=== PATIENT | male | born 1960 | race Caucasian/White ===

== ENCOUNTER 2020-10-07 18:57 | Emergency (ER) | payer OTHER ==
[~2020-10-07] VITALS: Ht 172.7 cm; Wt 83.5 kg
[~2020-10-07 18:57] MED LIST: MORP30TA PO; OXYC30TA3 PO
[2020-10-07 19:10] VITALS: BP 165/115
[2020-10-07] MEDS ORDERED: oxyCODONE IR 5 MG TABLET PO PRN (19:30)
[2020-10-07] MEDS ORDERED: LOPERAMIDE 2 MG CAPSULE PO ONE (19:30)
[2020-10-07] MEDS ORDERED: ACETAMINOPHEN 500 MG TABLET PO ONE (19:30)
[2020-10-07] MEDS ORDERED: IBUPROFEN 800 MG TABLET. PO ONE ×2 (19:33→19:45)
--- NOTE | 2020-10-07 19:34 | PHYS DOC ---
Past History Past Medical History: No Pertinent History Past Surgical History: No Surgical History Alcohol Use: None Drug Use: None Adult General Chief Complaint Chief Complaint: LOWER EXT PAIN HPI HPI Patient is a 60-year-old male, with chronic hip and knee pain with hardware in his knee and hip who presents for oxycodone. States he has been on it for almost 20 years and is going through withdrawals because he just came to town and is out of his medicine. States he lives out [place] of [facility] and is here in [place] for a few nights. Denies any headache, chest pain, shortness of breath, abdominal pain, nausea, vomiting, diarrhea. Other alcohol or drug use. States he does have a primary care physician at home. Review of Systems Review of Systems Review of systems otherwise unremarkable except noted in HPI Current Medications Current Medications Current Medications Medications (Trade) Dose Ordered Sig/Kaushik Start Time Stop Time Status Last Admin Dose Admin Acetaminophen (Tylenol) 1,000 mg 1X ONCE 10/07/20 19:30 10/07/20 19:31 UNV Fentanyl Citrate (Fentanyl 2ml Vial) 75 mcg 1X ONCE 10/07/20 19:30 10/07/20 19:31 UNV Ibuprofen (Motrin) 800 mg 1X ONCE 10/07/20 19:30 10/07/20 19:31 UNV Loperamide HCl (Imodium) 4 mg 1X ONCE 10/07/20 19:30 10/07/20 19:31 UNV Oxycodone HCl (Roxicodone) 10 mg 1X PRN 10/07/20 19:30 UNV Allergies Allergies Allergies Coded Allergies Type Severity Reaction Last Updated Verified No Known Drug Allergies 10/16/13 No Physical Exam Physical Exam Constitutional: Well developed, well nourished, no acute distress, non-toxic appearance. [] HENT: Normocephalic, atraumatic, Eyes: conjunctiva normal, no discharge. [] Cardiovascular:Heart rate regular rhythm, no murmur [] Lungs & Thorax: Bilateral breath sounds clear to auscultation [] Abdomen: soft, no tenderness, no masses, no pulsatile masses. [] Skin: Warm, dry, no erythema, no rash. [] Neurologic: Alert and oriented X 3, no focal deficits noted. [] Psychologic: Affect normal, judgement normal, mood normal. [] EKG EKG [] Radiology/Procedures Radiology/Procedures [] Heart Score C/O Chest Pain: No Risk Factors: Risk Factors: DM, Current or recent (<one month) smoker, HTN, HLP, family history of CAD, obesity. Risk Scores: Risk Factors: DM, Current or recent (<one month) smoker, HTN, HLP, family history of CAD, obesity. Course & Med Decision Making Course & Med Decision Making Patient is a 60-year-old male who presents for oxycodone, as he is out of town and is out of his chronic medication Vital signs notable for hypertension. Physical exam noted above. Given medicine for pain and opioid withdrawal in the ED. Discussed findings with patient and advised we do not do chronic pain management in the emergency department but gave him some while he is here for symptom relief. Advised to use Tylenol, ibuprofen, Benadryl and loperamide scheduled over the next couple of days to help with symptom management. Advised to call his primary care physician first thing Saturday morning. Gave return precautions to the ED. Patient grateful, verbalized understanding and agreed with plan of discharge. [] Dragon Disclaimer Dragon Disclaimer This electronic medical record was generated, in whole or in part, using a voice recognition dictation system. Departure Departure: Impression: Primary Impression: Opioid withdrawal Additional Impression: Pain management Disposition: 01 HOME / SELF CARE / HOMELESS Condition: IMPROVED Referrals: NON,STAFF (PCP) BG ROSAS MD Patient Instructions: Narcotic Withdrawal Additional Instructions: Thank you for coming into the emergency department tonight and allowing us to take care of you. Please read the attached information very carefully to go back over things we discussed. You were given a dose of opiate pain medicine in the emergency department and 2 tablets to take home. Please save these tablets for tomorrow. Please also take ibuprofen, small amount of Tylenol, Benadryl and Imodium to help with symptoms at home. Please call your primary care physician as soon as you can to update on ED visit and set up a follow-up visit for pain management. Please come back to the ED with new or concerning symptoms as discussed. Problem Qualifiers BALDOMERO MCCARTY MD Oct 07, 2020 19:34
== END 2020-10-07 19:45 | disposition home or self-care (01) ==
LOC: ER 18:57
DX: F11.23 Opioid dependence with withdrawal (principal); I10 Essential (primary) hypertension; G89.29 Other chronic pain; M25.569 Pain in unspecified knee; M25.559 Pain in unspecified hip
CPT/HCPCS: 96374; 99284; J3010

== ENCOUNTER 2021-01-15 14:43 | Emergency (ER) | payer OTHER ==
[~2021-01-15] VITALS: Ht 172.7 cm; Wt 80.6 kg
[2021-01-15 14:45] VITALS: BP 152/104
--- NOTE | 2021-01-15 14:58 | PHYS DOC ---
Past History Past Medical History: No Pertinent History Additional Past Medical Histor: chronic pain issues --rt hip, leg, back and neck-service related Past Surgical History: Other Additional Past Surgical Histo: rt hip, rt lower leg--mult to include skin grafts Alcohol Use: None Drug Use: None Adult General HPI HPI Patient is a [age] year old [sex] who presents with [] rt leg and back 4d ago [place] Requesting Xanax Claiming he is a good catherine Review of Systems Review of Systems Fourteen body systems of review of systems have been reviewed. See HPI for pertinent positives and negative responses, other potter all other systems are negative, non-pertinent or non-contributory Allergies Allergies Allergies Coded Allergies Type Severity Reaction Last Updated Verified No Known Drug Allergies 10/16/13 No Physical Exam Physical Exam Constitutional: Well developed, well nourished, no acute distress, non-toxic appearance. HENT: Normocephalic, atraumatic, bilateral external ears normal, oropharynx moist, no oral exudates, nose normal. Eyes: PERRLA, EOMI, conjunctiva normal, no discharge. Neck: Normal range of motion, no tenderness, supple, no stridor. Cardiovascular: Heart rate regular per monitor Lungs & Thorax: No respiratory distress or accessory muscle use, bilateral chest rise Abdomen: Abdomen soft, non-tender, bowel sounds present in all quadrants, no guarding or rebound, nonacute abdomen. Skin: Warm, dry, no erythema, no rash. Back: No tenderness, no CVA tenderness. Extremities: No tenderness, no cyanosis, no clubbing, ROM intact, no edema. Neurologic: Alert and oriented X 3, grossly normal motor & sensory function, no focal deficits noted. Psychologic: Affect normal, judgement normal, mood normal. EKG EKG [] Radiology/Procedures Radiology/Procedures [] Heart Score C/O Chest Pain: No Risk Factors: Risk Factors: DM, Current or recent (<one month) smoker, HTN, HLP, family history of CAD, obesity. Risk Scores: Risk Factors: DM, Current or recent (<one month) smoker, HTN, HLP, family history of CAD, obesity. Course & Med Decision Making Course & Med Decision Making Pertinent Labs and Imaging studies reviewed. (See chart for details) [] Dragon Disclaimer Dragon Disclaimer This electronic medical record was generated, in whole or in part, using a voice recognition dictation system. Departure Departure: Impression: Primary Impression: Encounter for medication refill Additional Impression: Drug-seeking behavior Disposition: HOME / SELF CARE / HOMELESS Condition: STABLE Referrals: PCP,NO (PCP) Additional Instructions: As discussed prior to ER departure, we were not willing or able to refill your requested medications. You report having issues with stolen medications and so, this should be reported to your local Police Department. You report being out of all benzodiazepine medications which are typically prescribed by the [facility] in [place], you need to contact them regarding these medication issues of running out as we are not willing nor able to refill these for you and good conscious. Please contact your primary care physician first thing in the morning to review ER visit today. Please note that traveling across the state for medication refill encounter is on high risk medication such as today will not help you and your pursuit of refilling your home medications. Please contact and/or present to your local emergency department if any emergent or life-threatening issues arise prior to outpatient follow-up. It was a pleasure to take care of you and I wish you the best going forward Problem Qualifiers JESSY KEITH DO Jan 15, 2021 14:58
== END 2021-01-15 15:20 | disposition home or self-care (01) ==
LOC: ER 14:43
DX: Z76.5 Malingerer [conscious simulation] (principal); Z76.0 Encounter for issue of repeat prescription; G89.29 Other chronic pain
CPT/HCPCS: 99281